=== PATIENT | male | born 1970 | race Caucasian/White ===

== ENCOUNTER → 2022-04-20 | Emergency (ER) | payer BC ==
[~2022-04-20] VITALS: Ht 175.3 cm; Wt 97.5 kg
[~2022-04-20] MED LIST: ASPIRIN 81 MG TAB.CHEW ONE
[2022-04-20] MEDS: ASPIRIN 81 MG TAB.CHEW PO ONE ×2 (12:11→12:15)
[2022-04-20 12:16] LABS: HEMATOCRIT 45.4 % (36.7-47.1); MEAN CORPUSCULAR HEMOGLOBIN 29.4 uug (23.8-33.4); MEAN CORPUSCULAR VOLUME 88.4 fL (73.0-96.2); PLATELET COUNT (AUTO) 291 K/uL (152-348)
--- NOTE | 2022-04-20 12:16 | NUR ---
Pt refused Aspirin 162mg, pt stated "it will swell me up". notified.
[2022-04-20 12:36] LABS: BILIRUBIN,TOTAL 0.8 mg/dL (0.2-1.0); POTASSIUM 3.9 mmol/L (3.5-5.1); TOTAL PROTEIN, SERUM 7.6 g/dL (6.4-8.2)
[2022-04-20 13:00] LABS: ETHANOL < 3 MG/DL (0-0)
[2022-04-20 13:42] LABS: *AMPHETAMINE, URINE NEGATIVE (NEGATIVE); *CANNABINOID, URINE NEGATIVE (NEGATIVE); *COCCAINE, URINE NEGATIVE (NEGATIVE); *PHENCYCLIDINE SCREEN,URINE NEGATIVE (NEGATIVE)
--- NOTE | 2022-04-20 15:45 | NUR ---
Called lab for a f/u of the 2nd Trop result, it is in progress per Vu.
--- NOTE | 2022-04-20 16:09 | NUR ---
Pt cannot wait for the result of the 2nd Trop, went AMA. DEAN aware.
== END | disposition left against medical advice (07) ==
LOC: ER 11:54
DX: R07.9 Chest pain, unspecified (principal); R06.02 Shortness of breath; Z88.6 Allergy status to analgesic agent; Z91.018 Allergy to other foods; G89.29 Other chronic pain; E11.9 Type 2 diabetes mellitus without complications
CPT/HCPCS: 36415; 71045; 84484; 85025; 93005; A4663; G0480